=== PATIENT | female | born 1960 | race Two or more races ===

== ENCOUNTER 2023-09-14 16:14 | Emergency (ER) | payer BC, OTHER ==
[~2023-09-14] VITALS: Ht 157.5 cm; Wt 71.6 kg
[2023-09-14 18:59] VITALS: BP 131/63; PULSE 87; RESP 17; TEMP 98.6; O2SAT 99
[2023-09-14] MEDS ORDERED: GABA-1250 PO (19:28)
[2023-09-14] MEDS: KETOROLAC TROMETH 30 MG/ML 1ML VIAL IM ONE (19:33)
== END 2023-09-14 19:40 | disposition home or self-care (01) ==
LOC: ER 16:14
DX: M54.12 Radiculopathy, cervical region (principal); Z88.0 Allergy status to penicillin
CPT/HCPCS: 96372; 99283; J1885